=== PATIENT | female | born 1940 | race Caucasian/White ===

== ENCOUNTER 2017-03-25 05:34 | Day surgery (SDC) | payer MEDICARE, SELFPAY ==
--- NOTE | 2017-03-25 | IMM_PTH ---
PATIENT: KING HEAD LOC: EN U#:[id number] AGE/SX: 76/F ROOM: RE03/25/[address]: Dr. Elmer Jordan MD : 1940 BED: DIS: 03/25/2017 SPEC #: [id number] RECD: 03/26/17 12:45 STATUS: BERENICE REJordan #: [id number] REX: 03/25/17 00:[address]: Elmer Jordan DEPT: IMMUNOHISTOCHEMISTRY RECD BY: Lisseth Ballesteros ENTERED: 03/26/17 12:46 SP TYPE: IMMUNO OTHR DR: Chitra Stevens STEEL TIERRicardo Tissues: Transverse colon Procedures: SMA (add) DESMIN (add) P53 (add) Vimentin (add) Pankeratin (initial) S-100 (add) PHYSICIAN & INSTITUTION [place] [id number] SPECIMEN INFORMATION: Tissue Source: Transverse colon polyp Clinical Info: History polyps Specimen Number: [id number] CPT code: 41519, 81702 x5 METHODOLOGY: Deparaffinized sections of prefer/formalin-fixed tissue or PAP/DQ stained slides are incubated with monoclonal/polyclonal antibodies/oligonucleotide probes. Localization is made via biotin free immunoperoxidase method. Appropriate controls are performed and reacted as expected. Results on target cell population are indicated in the following table: RESULTS: ANTIBODY / CLONE RESULT AE1-3 (AE1/AE3/PCK26) negative S-100 (4C4.9) negative Actin (1A4) positive Desmin (CE-R-11) positive Vimentin (V9) negative P53 (DO-7) negative These tests were developed and their performance characteristics determined by [facility]. They may not have been cleared or approved by the U.S. Food and Drug Administration. The FDA has determined that such clearance or approval is not necessary. INTERPRETATION: Transverse colon polyp: Consistent with submucosal leiomyoma. AM:ayaka 03/27/17
--- NOTE | 2017-03-25 | COLBX_PTH ---
PATIENT: KING HEAD LOC: EN U#:[id number] AGE/SX: 76/F ROOM: RE03/25/[address]: Dr. Elmer Jordan MD : 1940 BED: DIS: 03/25/2017 SPEC #: [id number] RECD: 03/25/17 14:38 STATUS: BERENICE ANGUS #: [id number] REX: 03/25/17 00:[address]: Elmer Jordan DEPT: SURGICAL PATHOLOGY RECD BY: Zana Smith ENTERED: 03/25/17 14:38 SP TYPE: COLON BX OTHR DR: Chitra Stevens, CARTOONIST SPECIAL EFFECTS-C Tissues: Transverse colon Procedures: Surgery Specimen Level IV HEADER OPERATION: Colonoscopy PRE-OP DIAGNOSIS: History polyps TISSUE SUBMITTED: Transverse colon polyp MICROSCOPIC DIAGNOSIS Transverse colon polyp, biopsy: Consistent with submucosal leiomyoma. AM:ayaka 03/26/17 COMMENT Immunohistochemistry ([id number]) supports the above diagnosis. MICROSCOPIC DESCRIPTION Slides are reviewed. GROSS DESCRIPTION Received in fixative is one container labeled with the patient's name and designated transverse colon polyp. The specimen consists of one irregular fragment of light flores soft tissue that measures 0.3 x 0.3 x 0.1 cm. The specimen is totally submitted in one cassette. / AM:ayaka 03/25/17 TC:5 [facility]: [id number]
[2017-03-25 06:16] VITALS: BP 167/96; PULSE 89; RESP 16; TEMP 36.8; O2SAT 100; BMI 17.6
[2017-03-25 07:35] VITALS: BP 116/73; BP 167/96; PULSE 68; RESP 16; TEMP 36.2; O2SAT 98
--- NOTE | 2017-03-25 07:35 | PCM.OPRPT ---
Problem List (1) Personal history of colonic polyps Status: Acute Report of Operation Date of Procedure: 03/25/17 Pre-Operative Diagnosis: Z 86.010 personal history of colonic polyps Post-Operative Diagnosis: Same Surgery/Procedure Performed:: [id number] colonoscopy with snare polypectomy Type of Anesthesia:: MAC Anesthesiologist: Melquiades Ward Description of Procedure: Patient was brought into the endoscopy suite. Placed in the left lateral decubitus position. Was given graded anesthesia. The scope was inserted into the rectum and directed through the sigmoid colon, descending colon, transverse colon, ascending colon, to the cecum. Operative findings: 1. Cecum: Normal appearance no mass lesions. 2. Ascending colon: Normal appearance no mass lesions. 3. Transverse colon: Normal appearance small hyperplastic polyp was noted in the proximal transverse colon was retrieved through snare cautery technique and brought back through the channel of the scope. The rest of the transverse colon appeared normal and there was scattered diverticuli. 4. Descending colon: Normal appearance no mass lesions scattered diverticular disease. 5. Sigmoid colon: Normal appearance no mass lesions scattered diverticular disease. 6. Rectum: Normal appearance no mass lesions scope was withdrawn digital rectal exam was performed showing no masses within the anus. Patient tolerated the procedure well. We will discuss with her the need for a repeat colonoscopy in 3 years. - Admit VTE Documentation VTE Present on Admission: No VTE Mechan Device Prophylaxis: None VTE Pharm Prophylaxis ordered?: No Reason prophylaxis not ordered:: Treatment Not Indicated
[2017-03-25 07:40] VITALS: BP 132/75; BP 167/96; PULSE 73; RESP 16; O2SAT 98
[2017-03-25 07:45] VITALS: BP 140/41; BP 167/96; PULSE 64; RESP 16; O2SAT 97
[2017-03-25 07:50] VITALS: BP 151/75; BP 167/96; PULSE 63; RESP 16; O2SAT 100
[2017-03-25 08:09] VITALS: BP 167/96
== END 2017-03-25 08:39 | disposition home or self-care (01) ==
LOC: EN 05:35 → AC 05:36
PROVIDERS: Family Provider Nurse Practitioner; PCP Nurse Practitioner; Visit Provider Surgery
PROC: 0DJD8ZZ Inspection of Lower Intestinal Tract, Via Natural or Artificial Opening Endoscopic (ICD-10-PCS; CPT 45378; principal; 2017-03-25 06:55)
DX: D12.3 Benign neoplasm of transverse colon (principal); K57.30 Diverticulosis of large intestine without perforation or abscess without bleeding; M06.9 Rheumatoid arthritis, unspecified; I10 Essential (primary) hypertension; Z78.0 Asymptomatic menopausal state; Z79.82 Long term (current) use of aspirin; Z79.899 Other long term (current) drug therapy; Z86.010 Personal history of colon polyps
CPT/HCPCS: 45385; 88305; 88341; 88342; J7120

== ENCOUNTER → 2017-04-02 10:18 | Outpatient (CLI) | payer MEDICARE, SELFPAY ==
--- NOTE | 2017-04-02 10:21 | HPBD_ITS ---
STUDY: DUAL ENERGY X-RAY ABSORPTIOMETRY / DXA REASON FOR EXAM: Female, 77 years old. The patient is postmenopausal. Loss of height of 2 inches. TECHNIQUE: Bone Mineral Density (BMD) measurements of lumbar spine and bilateral hips were obtained. COMPARISON: Comparison is made with prior study dated February 09, 2015. FINDINGS: Lumbar Spine (L1-L4): g/cm2 (1.284) / T-score (1.0) / Z-score (2.8) Findings are suggestive of normal bone density with a low fracture risk. Increased kyphosis. Left Femur Total: g/cm2 (0.997) / T-score (-0.1) / Z-score (1.9) Left Femoral Neck: g/cm2 (0.999) / T-score (-0.3) / Z-score (1.8) Right Femur Total: g/cm2 (0.989) / T-score (-0.2) / Z-score (1.8) Right Femoral Neck: g/cm2 (1.019) / T-score (-0.1) / Z-score (2.0) The T-Scores on the most recent prior examination were: Lumbar Spine (L1-L4): There has been improvement of bone density since the previous examination. Left Femur Total: which represents an improvement of 11.1%. Right Femur Total: which represents an improvement of 9.3%. HPBD/Dexa Bone Density Study (HP) IMPRESSION: The patient is considered normal as outlined below according to World Binh Organization (WHO) criteria with a low fracture risk. There has been improvement of bone density since the previous examination. Reference Information: The T-score is the number of standard deviations above or below the standard which is normal for young adults at their peak bone mineral density. The World Health Organization (WHO) interprets the T-scores as follows: Above -1 Normal bone density Between -1 and -2.5 Osteopenia Equal to / or below -2.5 Osteoporosis As a practical clinical guideline, osteopenia may be graded as follows: Mild -1 through -1.5 Moderate -1.6 through -2.0 Severe -2.1 through -2.4 The Z-score is the number of standard deviations above or below age-matched controls. A Z-score of less than -1.5 would be considered abnormal. References: 1. NIH Osteoporosis and Related Bone Diseases http://www.osteo.org 2. International Society for Clinical Densitometry http://www.iscd.org 3. National Osteoporosis Foundation http://www.nof.org Electronically Signed: Morgan Ramires MD at 11:15 EST Tel [phone], Service support ,
--- NOTE | 2017-04-02 10:22 | HPBI_ITS ---
MAMMOGRAPHY - BILATERAL SCREENING REASON FOR EXAM: Female, 77 years old. Routine annual screening examination. PERTINENT HISTORY: Non-contributory. TECHNIQUE: Digital bilateral breast emelia (3D mammographic acquisition) in the CC and MLO projections. 2-D mediolateral oblique (MLO) and craniocaudad (CC) views of both breasts were obtained. CAD: Full Field Digital Mammography with Computer Added Detection was performed. COMPARISON: Comparison is made with prior study dated 2016 and February 09, 2015. FINDINGS: Breast Composition: The breasts are heterogeneously dense, which may obscure small masses. There are no dominant masses or suspicious calcifications. Stable small partially calcified fibroadenoma in the axillary region of the right breast. No other significant abnormalities are identified. There has been no significant change since the prior study. HPBI/SCREENING MAMM (CAD), BILAT IMPRESSION: Stable bilateral screening mammogram. Yearly follow-up mammogram recommended. (A) ASSESSMENT CATEGORY: BIRADS Category 2: Benign. A letter regarding these results will be sent to the patient by the facility within 30 days. Approximately 10% of breast cancers are not detected by mammography. A normal mammogram should not delay biopsy of a clinically suspicious abnormality. [id number] Electronically Signed: Morgan Ramires MD at 11:12 EST Tel [phone], Service support ,
== END ==
PROVIDERS: Family Provider Nurse Practitioner; PCP Nurse Practitioner
DX: Z12.31 Encounter for screening mammogram for malignant neoplasm of breast (principal); Z78.0 Asymptomatic menopausal state; Z13.820 Encounter for screening for osteoporosis
CPT/HCPCS: 77063; 77067; 77080

== ENCOUNTER → 2018-05-05 13:03 | Outpatient (CLI) | payer MEDICARE, SELFPAY ==
--- NOTE | 2018-05-05 13:06 | BI_ITS ---
MAMMOGRAPHY - BILATERAL SCREENING REASON FOR EXAM: Female, 78 years old. Routine annual screening examination. PERTINENT HISTORY: Non-contributory. TECHNIQUE: Digital bilateral breast emelia (3D mammographic acquisition) in the CC and MLO projections. 2-D mediolateral oblique (MLO) and craniocaudad (CC) views of both breasts were obtained. CAD: Full Field Digital Mammography with Computer Added Detection was performed. COMPARISON: Comparison is made with prior study dated April 02, 2017 and February 28, 2016. FINDINGS: Breast Composition: The breasts are heterogeneously dense, which may obscure small masses. There are no dominant masses or suspicious calcifications. Stable partially calcified nodular density in the axillary region of the right breast. No other significant abnormalities are identified. There has been no significant change since the prior study. BI/SCREENING MAMM (CAD), BILAT IMPRESSION: Stable bilateral screening mammogram. Yearly follow-up mammogram recommended. (A) ASSESSMENT CATEGORY: BIRADS Category 2: Benign. A letter regarding these results will be sent to the patient by the facility within 30 days. Approximately 10% of breast cancers are not detected by mammography. A normal mammogram should not delay biopsy of a clinically suspicious abnormality. [id number] Electronically Signed: Morgan Ramires, at 15:53 EDT , Service support ,
== END ==
PROVIDERS: Family Provider Nurse Practitioner; PCP Nurse Practitioner; Visit Provider Nurse Practitioner
DX: Z12.31 Encounter for screening mammogram for malignant neoplasm of breast (principal)
CPT/HCPCS: 77063; 77067

== ENCOUNTER 2018-11-27 10:04 | Day surgery (SDC) | payer MEDICARE, SELFPAY ==
[2018-11-27 10:31] VITALS: BP 146/74; PULSE 94; RESP 15; TEMP 36.9; O2SAT 100; BMI 17.3
[2018-11-27] MEDS: Tetracaine 0.5% Ophthalmic Bottle 1 DRP OP (11:40)
[2018-11-27] MEDS: Povidone Iodine 30 ML Opthalmic Sol 1 DRP (11:40)
--- NOTE | 2018-11-27 12:25 | DCINST_ITS ---
Allergies/Adverse Reactions: Allergies ciprofloxacin [From Cipro] Allergy (Mild, Verified 11/27/18 10:29) Unknown demeclocycline HCl [From Declomycin] Allergy (Verified 11/27/18 10:29) Rash Medications to take at Discharge Benazepril HCl [Lotensin] 10 mg PO DAILY 01/12/14 Vitamin B12 2,000 mcg PO DAILY 02/28/15 Amlodipine [Norvasc] 2.5 mg PO QHS 11/20/18 Biotin 1 mg PO DAILY 11/20/18 Cholecalciferol (Vitamin D3) [Vitamin D3] 2,000 unit PO DAILY 11/20/18 Grow Bone 2 tab PO TID 11/20/18 Cataract Instructions: -Take a pain reliever such as Tylenol, Aspirin or Ibuprofen if needed for eye aching or pain. If this is not enough relief for you pain, call your doctor (or the doctor english composition teacher), even at night. -You are scheduled for a follow-up appointment at [facility] the day after surgery. You should have someone drive you. -Transient pain and irritation are due to the incision that was made at the time of surgery and do not indicate any trouble. Our office numbers are . If there is no answer, or if it is after our normal business hours, call your surgeon. My home phone number is: Dr. Angela Raya INSTRUCTIONS FOLLOWING TOPICAL ANESTHETIC CATARACT SURGERY Protect operated eye with glasses or metal shield at all times. Instill one drop of Polytrim (or other antibiotic drop), one drop of Prednisolone and one drop of Acular in the operated eye four times a day (breakfast, lunch, dinner, and bedtime) until the doctor tells you to quit or decrease them. Wait 3-5 minutes between each drop. Please begin these immediately upon arriving at home. if your surgery is in t he afternoon, try to use the drops at least three more times the day of surgery and again the following morning before your appointment. INSTRUCTIONS FOLLOWING RETROBULBAR CATARACT SURGERY Keep the eye patch and metal shield on until you see your surgeon the day after surgery - these will be removed in the office that day. Do not drive while the patch is on your eye. You will be instructed about the use of drops for the operated eye at that visit. Primary Care Physician: Chitra Stevens NP-C [Primary Care Provider] -
--- NOTE | 2018-11-27 12:25 | PCM.OPRPT ---
Report of Operation Date of Procedure: 11/27/18 Pre-Operative Diagnosis: Cataract Left Eye Post-Operative Diagnosis: Cataract Left eye Surgery/Procedure Performed:: PEM IOL OS with expansion of miotic pupil Description of Surgical Findings:: Indications for Procedure: 78 yo female with history of worsening vision in the left eye secondary to cataract. Risks, benefit, alternatives of cataract surgery were discussed with the patient who agreed to proceed with cataract extraction of the left eye. Description of Procedure: The patient was brought to the operating room where a time out was performed prior to surgery. Anesthesia team induced light sedation. The eye was prepped and draped in the usual sterile fashion for eye surgery. A troy blade was used to create a paracentesis incision at the inferotemporal limbus. Preservative free lidocaine, followed by viscoat was used to deepen the anterior chamber. A keratome was used to create a clear corneal biplanar incision. A malyugian ring was inserted in order to expand the miotic pupil and maintain pupillary dilation. A cystotome was used to begin the capsulorhexis and was completed in a continous curvilinear fashion using capsulorhexis forceps. BSS on heller canula was used to irrigate beneath the lens capsule until the lens was noted to be freely mobile in the capsular bag. Phacoemulsification was used to remove the lens in a divide and conquer technique. The remaining cortical material was removed using irrigation and aspiration. THe capsular bag was completely intact. Provisc was used to inflate the capsular bag and A tecnis 25.0 PCBOO lens was placed into the capsular bag and adjusted using a annmarie hook. The malyugian ring was removed from the iris and anterior chamber. The remaining viscoelastic material was removed using aspiration. The main incision was closed with a 10-0 nylon suture. The wounds were noted to be water tight with a weck cell sponge. The patient was taken to the recovery room in a stable condition with instructions to followup in the clinic the following day. Type of Anesthesia:: MAC and Topical Anesth Estimated Blood Loss (mL): none - Complications none
[2018-11-27 12:27] VITALS: BP 157/87; PULSE 76; RESP 16; TEMP 36.4; O2SAT 97
[2018-11-27 12:30] VITALS: BP 161/82; PULSE 75; RESP 18; O2SAT 96
[2018-11-27 12:35] VITALS: BP 149/78; PULSE 75; RESP 18; O2SAT 99
[2018-11-27 12:39] VITALS: BP 146/89; PULSE 75; RESP 18; TEMP 36.4; O2SAT 100
== END 2018-11-27 13:38 | disposition home or self-care (01) ==
LOC: SDC 10:08 → AC 10:14
PROVIDERS: Family Provider Nurse Practitioner; PCP Nurse Practitioner; Referring Provider Ophthalmology; Visit Provider Ophthalmology
PROC: (CPT 66982; principal; 2018-11-27 11:20)
DX: H26.9 Unspecified cataract (principal); H57.03 Miosis; I10 Essential (primary) hypertension; M06.9 Rheumatoid arthritis, unspecified; H91.93 Unspecified hearing loss, bilateral; M79.7 Fibromyalgia; E55.9 Vitamin D deficiency, unspecified; Z79.899 Other long term (current) drug therapy
CPT/HCPCS: 00142; 66982

== ENCOUNTER 2018-12-11 09:53 | Day surgery (SDC) | payer MEDICARE, SELFPAY ==
[2018-12-11 10:26] VITALS: BP 151/90; PULSE 93; RESP 16; TEMP 37.3; O2SAT 98; BMI 17.2
[2018-12-11] MEDS: Tetracaine 0.5% Ophthalmic Bottle 1 DRP OP (10:40)
[2018-12-11] MEDS: Povidone Iodine 30 ML Opthalmic Sol 1 DRP (11:41)
--- NOTE | 2018-12-11 12:18 | PCM.DC.CATCL ---
Allergies/Adverse Reactions: Allergies ciprofloxacin [From Cipro] Allergy (Mild, Verified 12/11/18 10:25) Unknown demeclocycline HCl [From Declomycin] Allergy (Verified 12/11/18 10:25) Rash Medications to take at Discharge Benazepril HCl [Lotensin] 10 mg PO DAILY 01/12/14 Vitamin B12 2,000 mcg PO DAILY 02/28/15 Amlodipine [Norvasc] 2.5 mg PO QHS 11/20/18 Biotin 1 mg PO DAILY 11/20/18 Cholecalciferol (Vitamin D3) [Vitamin D3] 2,000 unit PO DAILY 11/20/18 Grow Bone 2 tab PO TID 11/20/18 Cataract Instructions: -Take a pain reliever such as Tylenol, Aspirin or Ibuprofen if needed for eye aching or pain. If this is not enough relief for you pain, call your doctor (or the doctor superintendent division), even at night. -You are scheduled for a follow-up appointment at [facility] the day after surgery. You should have someone drive you. -Transient pain and irritation are due to the incision that was made at the time of surgery and do not indicate any trouble. Our office numbers are . If there is no answer, or if it is after our normal business hours, call your surgeon. My home phone number is: Dr. Angela Raya INSTRUCTIONS FOLLOWING TOPICAL ANESTHETIC CATARACT SURGERY Protect operated eye with glasses or metal shield at all times. Instill one drop of Polytrim (or other antibiotic drop), one drop of Prednisolone and one drop of Acular in the operated eye four times a day (breakfast, lunch, dinner, and bedtime) until the doctor tells you to quit or decrease them. Wait 3-5 minutes between each drop. Please begin these immediately upon arriving at home. if your surgery is in t he afternoon, try to use the drops at least three more times the day of surgery and again the following morning before your appointment. INSTRUCTIONS FOLLOWING RETROBULBAR CATARACT SURGERY Keep the eye patch and metal shield on until you see your surgeon the day after surgery - these will be removed in the office that day. Do not drive while the patch is on your eye. You will be instructed about the use of drops for the operated eye at that visit. Primary Care Physician: Chitra Stevens NP-C [Primary Care Provider] -
[2018-12-11 12:20] VITALS: BP 139/91; BP 151/90; PULSE 78; RESP 16; TEMP 36.3; O2SAT 100
[2018-12-11 12:25] VITALS: BP 128/78; BP 151/90; PULSE 69; RESP 16; O2SAT 100
--- NOTE | 2018-12-11 12:28 | PCM.OPRPT ---
Report of Operation Date of Procedure: 12/11/18 Pre-Operative Diagnosis: Cataract Right Eye Post-Operative Diagnosis: same Surgery/Procedure Performed:: Cataract Extraction with Intraocular lens Implant complex case with expansion of miotic pupil Right Eye Description of Surgical Findings:: Cataract Right Eye Indications for procedure: This is an 78 yo female with history of worsening vision in right eye. After discussion of risks/benefits/alternatives of procedure she agreed to proceed with cataract surgery of the right eye. Type of Anesthesia:: MAC and Topical Anesth Estimated Blood Loss (mL): none Description of Procedure: The patient was brought to the operating room where a time out was performed prior to the start of the procedure. Anesthesia team induced light sedation. The eye was prepped and draped in the usual sterile fashion for eye surgery. A troy blade was used to create a paracentesis incision at the superotemporal limbus. Preservative free lidocaine followed by viscoat was instilled in the anterior chamber. A keratome was used to create a clear corneal biplanar incision at the temporal limbus. A malyugian ring was inserted into the anterior chamber to capture and maintain pupillary dilation. A cystotome was used to begin the capsulorhexis in a continuous curvilenear fashion using forceps. BSS was hydrated beneath the lens capsule until is was freely mobile. Phacoemulsifcation was used to remove the lens in a divide and conquer technique. Irrigation and aspiration was used to remove the cortex. The capsular bag was intact. Provisc was used to inflate the capsular bag and a tecnis pcboo 25.5 diopter lens was placed into the capsular bag and adjusted using the annmarie hook. The malyugian ring was removed. The remaining viscoelastic was removed with irrigation and aspiration. The wounds were hydrated and noted to be watertight at the conclusion of the case with a weck cell sponge. The patient was taken to the recovery area in a stable condition with instructions to follow up in the clinic the following day. - Complications none
[2018-12-11 12:30] VITALS: BP 136/74; BP 151/90; PULSE 69; RESP 16; O2SAT 100
[2018-12-11 12:35] VITALS: BP 137/67; BP 151/90; PULSE 67; RESP 16; TEMP 36.6; O2SAT 99
[2018-12-11 13:13] VITALS: BP 151/90
== END 2018-12-11 13:14 | disposition home or self-care (01) ==
LOC: SDC 09:57 → AC 10:00
PROVIDERS: Family Provider Nurse Practitioner; PCP Nurse Practitioner; Referring Provider Ophthalmology; Visit Provider Ophthalmology
PROC: (CPT 66982; principal; 2018-12-11 11:20)
DX: H25.811 Combined forms of age-related cataract, right eye (principal); H25.11 Age-related nuclear cataract, right eye; I10 Essential (primary) hypertension; M06.9 Rheumatoid arthritis, unspecified; F41.9 Anxiety disorder, unspecified; Z78.0 Asymptomatic menopausal state; Z79.899 Other long term (current) drug therapy; Z98.42 Cataract extraction status, left eye
CPT/HCPCS: 66982

== ENCOUNTER → 2019-11-05 11:16 | Outpatient (CLI) | payer MEDICARE, SELFPAY ==
[2019-11-05 12:47] LABS: Absolute Lymphocyte Count 2.27 X10^3/uL (0.83-4.51); Absolute Neutrophil Count 6.3 X10^3/uL (2.0-7.7); Basophil# 0.06 X10^3/uL; Basophil% 0.6 % (0-1); Eosinophil# 0.54 X10^3/uL; Eosinophils% 5.4 % (0-5); Hematocrit 41.3 % (37-47); Hemoglobin 12.5 g/dL (12.0-15.0); Lymphocyte # 2.27 X10^3/ul (4.0); Lymphocyte % 22.8 % (19-41); Mean Corp Hgb Conc 30.3 g/dL (32-36); Mean Corpuscular Hgb 25.4 pg (27.0-32.0); Mean Corpuscular Volume 83.9 fL (81-99); Mean Platelet Vol. 9.9 fl (6.2-12.0); NRBC Flagged by Analyzer 0 % (0-5); Neutrophil # 6.25 X10^3/uL (2.7-7.7); Neutrophil % 62.8 % (47-70); Platelet Count 484 K/mm3 (150-450); RBC Distribution Width CV 15.9 % (11.6-14.6); RBC Distribution Width SD 49.2 fl (35.1-43.9); Red Blood Count 4.92 M/mm3 (4.2-5.4)
[2019-11-05 13:29] LABS: Vitamin B12 > 2000 pg/mL (211-911)
[2019-11-05 13:43] LABS: Alkaline Phosphatase 155 U/L (45-117)
== END ==
PROVIDERS: PCP Nurse Practitioner; Referring Provider Nurse Practitioner; Visit Provider Nurse Practitioner
DX: R79.89 Other specified abnormal findings of blood chemistry (principal)
CPT/HCPCS: 36415; 82607; 82746; 84075; 85025

== ENCOUNTER → 2019-11-10 14:34 | Outpatient (CLI) | payer MEDICARE, SELFPAY ==
--- NOTE | 2019-11-10 14:44 | BI_ITS ---
MAMMOGRAPHY - BILATERAL SCREENING REASON FOR EXAM: Female, 79 years old. Routine annual screening examination. PERTINENT HISTORY: Non-contributory. TECHNIQUE: Digital bilateral breast holly (3D mammographic acquisition) in the CC and MLO projections. 2-D mediolateral oblique (MLO) and craniocaudad (CC) views of both breasts were obtained. CAD: Full Field Digital Mammography with Computer Added Detection was performed. COMPARISON: Comparison is made with prior study dated 05/05/2018 and 04/02/2017. FINDINGS: Breast Composition: The breasts are heterogeneously dense, which may obscure small masses. There are no dominant masses or suspicious calcifications. Stable small density in the right axillary region with punctate calcification. No other significant abnormalities are identified. There has been no significant change since the prior study. BI/SCREEN MAMM (CAD) W/HOLLY BILAT IMPRESSION: Stable bilateral screening mammogram. Yearly follow-up mammogram recommended. (A) ASSESSMENT CATEGORY: BIRADS Category 2: Benign. A letter regarding these results will be sent to the patient by the facility within 30 days. Approximately 10% of breast cancers are not detected by mammography. A normal mammogram should not delay biopsy of a clinically suspicious abnormality. [id number] Electronically Signed: Morgan Ramires, at 16:15 EDT , Service support ,
--- NOTE | 2019-11-10 14:53 | BD_ITS ---
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 COMPARISON: Comparison is made with prior study dated 04/02/2017. FINDINGS: Lumbar Spine (L1-L4): g/cm2 (1.303) / T-score (1.2) / Z-score (3.0) Findings are suggestive of normal bone density with a low fracture risk. Increased kyphosis. Left Femur Total: g/cm2 (0.972) / T-score (-0.3) / Z-score (1.8) Left Femoral Neck: g/cm2 (0.998) / T-score (-0.3) / Z-score (1.9) Right Femur Total: g/cm2 (0.924) / T-score (-0.7) / Z-score (1.4) Right Femoral Neck: g/cm2 (0.989) / T-score (-0.3) / Z-score (1.9) The T-Scores on the most recent prior examination were: Lumbar Spine (L1-L4): There has been improvement of bone density since the previous examination. Left Femur Total: which represents a worsening of 2.5%. Right Femur Total: which represents a worsening of 6.6%. BD/Dexa Bone Density Study IMPRESSION: The patient is considered normal as outlined below according to World Binh Organization (WHO) criteria with a low fracture risk. There has been worsening of bone density since the previous examination. Reference Information: The T-score is the number of standard deviations above or below the standard which is normal for young adults at their peak bone mineral density. The World Health Organization (WHO) interprets the T-scores as follows: Above -1 Normal bone density Between -1 and -2.5 Osteopenia Equal to / or below -2.5 Osteoporosis As a practical clinical guideline, osteopenia may be graded as follows: Mild -1 through -1.5 Moderate -1.6 through -2.0 Severe -2.1 through -2.4 The Z-score is the number of standard deviations above or below age-matched controls. A Z-score of less than -1.5 would be considered abnormal. References: 1. NIH Osteoporosis and Related Bone Diseases http://www.osteo.org 2. International Society for Clinical Densitometry http://www.iscd.org 3. National Osteoporosis Foundation http://www.nof.org Electronically Signed: Morgan Ramires, at 15:56 EDT , Service support ,
== END ==
PROVIDERS: PCP Nurse Practitioner; Referring Provider Nurse Practitioner; Visit Provider Nurse Practitioner
DX: Z12.31 Encounter for screening mammogram for malignant neoplasm of breast (principal); Z78.0 Asymptomatic menopausal state
CPT/HCPCS: 77063; 77067; 77080

== ENCOUNTER → 2020-05-30 15:03 | Outpatient (CLI) | payer MEDICARE, SELFPAY ==
[2020-05-30 17:56] LABS: Absolute Lymphocyte Count 1.93 X10^3/uL (0.83-4.51); Absolute Neutrophil Count 5.4 X10^3/uL (2.0-7.7); Basophil# 0.06 X10^3/uL; Basophil% 0.7 % (0-1); Eosinophils% 2.4 % (0-5); Hematocrit 40.7 % (37-47); Hemoglobin 12.5 g/dL (12.0-15.0); Lymphocyte # 1.93 X10^3/ul (0.83-4.51); Lymphocyte % 23.2 % (19-41); Mean Corp Hgb Conc 30.7 g/dL (32-36); Mean Corpuscular Volume 87.9 fL (81-99); Mean Platelet Vol. 9.2 fl (6.2-12.0); Monocyte# 0.68 X10^3/uL; Monocyte% 8.2 % (0-10); NRBC Flagged by Analyzer 0 % (0-5); Neutrophil # 5.42 X10^3/uL (2.7-7.7); Neutrophil % 65.3 % (47-70); Platelet Count 566 K/mm3 (150-450); RBC Distribution Width CV 13.9 % (11.6-14.6); RBC Distribution Width SD 44.2 fl (35.1-43.9); Red Blood Count 4.63 M/mm3 (4.2-5.4); White Blood Count 8.3 K/mm3 (4.4-11.0)
[2020-05-30 18:03] LABS: ALB/GLOB Ratio 0.8 RATIO (0.9-2.4); AST(SGOT) 11 U/L (15-37); Alanine Aminotransfer ALT/SGPT 16 U/L (13-56); Albumin, Serum 3.4 g/dL (3.2-5.0); Alkaline Phosphatase 128 U/L (45-117); Anion Gap 5 (5-15); BUN 15 mg/dL (7-18); BUN/Creat Ratio 23.4 RATIO (10-20); Calcium,Total 9.4 mg/dL (8.5-10.1); Chloride 104 mmol/L (98-107); Creatinine, Serum 0.64 mg/dL (0.55-1.02); EST Glomerular Filtration Rate 94 mL/min (>60); Est Glom Filt Rate - Afr Amer 114 mL/min (>60); Globulin 4.4 g/dL (2.2-4.2); Glucose 95 mg/dL (74-106); Potassium 3.9 mmol/L (3.5-5.1); Protein, Total 7.8 g/dL (6.4-8.2); Sodium Level 139 mmol/L (136-145)
[2020-05-31 09:27] LABS: Hepatitis B Surface Antibody Non-Reactive; Hepatitis B Surface Antigen Non-Reactive (Nonreactive); Hepatitis C Antibody Non-Reactive (Nonreactive)
[2020-06-01 20:45] LABS: ANTINUCLEAR ANTIBODIES DIRECT Negative (Negative)
[2020-06-02 16:32] LABS: CCP IgG Antibodies > 250 units (0-19); Hepatitis B Core AB IgM Negative (Negative)
== END ==
PROVIDERS: PCP Nurse Practitioner; Referring Provider Internal Medicine Rheumatology; Visit Provider Internal Medicine Rheumatology
DX: M05.79 Rheumatoid arthritis with rheumatoid factor of multiple sites without organ or systems involvement (principal); I10 Essential (primary) hypertension; H91.93 Unspecified hearing loss, bilateral; H93.19 Tinnitus, unspecified ear
CPT/HCPCS: 36415; 80053; 85025; 86038; 86200; 86431; 86705; 86706; 86803; 87340